=== PATIENT | male | born 1970 | race Caucasian/White ===

== ENCOUNTER → 2018-11-24 | Outpatient (CLI) | payer OTHER ==
[~2018-11-24] MED LIST: REGADENOSON 0.4 MG/5 ML SYRINGE ONE
== END | disposition home or self-care (01) ==
LOC: CFH 12:37
PROVIDERS: ATTEND Internal Medicine Cardiovascular Disease
DX: R00.2 Palpitations (principal); R94.31 Abnormal electrocardiogram [ECG] [EKG]
CPT/HCPCS: 78452; 93017; A9502; J2785

== ENCOUNTER 2019-01-12 06:38 | Observation (INO) | payer OTHER ==
[2019-01-11 09:58] LABS: BASOPHILS # (AUTO) 0.03 x10^3/uL (0-0.1); BASOPHILS % (AUTO) 1 % (0-1); EOSINOPHILS # (AUTO) 0.15 x10^3/uL (0-0.4); EOSINOPHILS % (AUTO) 3 % (1-7); LYMPHOCYTES # (AUTO) 1.62 x10^3/uL (1-3.4); LYMPHOCYTES % (AUTO) 33 % (22-44); MD NO; MEAN CORPUSCULAR HEMOGLOBIN 32.9 pg (27.5-34.5); MEAN CORPUSCULAR HGB CONC 33.5 g/dL (33.2-36.2); MEAN CORPUSCULAR VOLUME 98.2 fL (81-97); MEAN PLATELET VOLUME 7.7 fL (7.4-10.4); MONOCYTES # (AUTO) 0.34 x10^3/uL (0.2-0.8); MONOCYTES % (AUTO) 7 % (2-9); NEUTROPHILS # (AUTO) 2.85 x10^3/uL (1.8-6.8); NEUTROPHILS % (AUTO) 57 % (42-75); PLATELET COUNT 228 x10^3/uL (130-400); RED BLOOD COUNT 4.81 x10^6/uL (4.38-5.82); RED CELL DISTRIBUTION WIDTH 13.2 % (9.4-14.8)
[2019-01-11 10:11] LABS: CHLORIDE 109 mmol/L (98-107)
[2019-01-11 10:12] LABS: ALANINE AMINOTRANSFERASE 47 U/L (12-78); ALBUMIN 3.8 g/dL (3.4-5.0); ANION GAP 4 mmol/L (5-15); CREATININE 0.98 mg/dL (0.7-1.3)
[2019-01-11 10:13] LABS: ALKALINE PHOSPHATASE 52 U/L (45-117); BILIRUBIN,TOTAL 0.4 mg/dL (0.2-1.0); TOTAL PROTEIN 7.1 g/dL (6.4-8.2)
[~2019-01-12] VITALS: Ht 177.8 cm; Wt 103.8 kg
[~2019-01-12 06:38] MED LIST changes: +LIDOCAINE 1%, 20ML ONE; -REGADENOSON 0.4 MG/5 ML SYRINGE ONE; +TEST60GE TP
[2019-01-12] MEDS ORDERED: SODIUM CHLORIDE 0.9% 1,000 ML IV SCH (06:47)
[2019-01-12] MEDS ORDERED: METO25TA91 PO (07:02)
[2019-01-12 07:05] VITALS: BP 137/88
[2019-01-12] MEDS ORDERED: FENTANYL PF 100 MCG/2ML ONE ×3 (07:51→09:20)
[2019-01-12] MEDS ORDERED: MIDAZOLAM 1 MG/ML, 5ML ONE ×3 (07:51→09:20)
[2019-01-12] MEDS ORDERED: LIDOCAINE 2%, 20ML ONE (07:52)
[2019-01-12] MEDS ORDERED: ADENOSINE 6 MG/2 ML ONE ×2 (07:52→08:42)
[2019-01-12] MEDS ORDERED: ISOPROTERENOL 0.2MG/ML, 5ML ONE (07:52)
[2019-01-12] MEDS ORDERED: DIPHENHYDRAMINE 50 MG/ML, 1ML ONE (09:02)
[2019-01-12] MEDS ORDERED: HEPARIN 1,000 UNITS/ML, 10ML ONE ×2 (09:05→09:20)
[2019-01-12] MEDS ORDERED: ACETAMINOPHEN 325 MG TABLET PO PRN (12:00)
[2019-01-12 14:00] VITALS: BP 119/79
[2019-01-12] MEDS: ASPIRIN 325 MG TABLET PO SCH (15:22)
[2019-01-12 20:42] VITALS: BP 133/84
[2019-01-13 03:28] VITALS: BP 128/81
[2019-01-13 07:20] VITALS: BP 136/86
[2019-01-13] MEDS: ASPIRIN 325 MG TABLET PO SCH (07:48)
[2019-01-13] MEDS ORDERED: ASPI325T17 PO (08:36)
== END 2019-01-13 09:42 | disposition home or self-care (01) ==
LOC: CACL 06:38 → 5SO 11:12 → CACL 11:51 → DCLOUNGE 01-13 09:34
PROVIDERS: ADMIT Internal Medicine Cardiovascular Disease; ATTEND Internal Medicine Cardiovascular Disease
DX: I47.1 Supraventricular tachycardia (principal); Z79.899 Other long term (current) drug therapy
CPT/HCPCS: 36415; 71046; 80053; 85025; 85347; 93462; 93613; 93623; 93653; 93662; 99156; 99157; C1730; C1759; C1766; C1893; C1894; C2630; G0378; J0153; J1200; J1644; J2250; J3010; J3490